=== PATIENT | female | born 1960 | race Caucasian/White ===

== ENCOUNTER 2022-11-05 13:45 | Outpatient (REF) | payer OTHER, SELFPAY ==
[2022-11-05 15:36] LABS: Hematocrit 46.1 % (37.0-47.0); Hemoglobin 15.3 g/dl (12.0-16.0); Mean Corpuscular HGB Conc 33.2 g/dl (31.0-35.0); Mean Corpuscular Hemoglobin 31.3 pg (27.0-33.0); Mean Corpuscular Volume 94.3 fL (80.0-98.0); Mean Platelet Volume 9.3 fL (9.4-12.3); Platelet Count 340 X10*3/uL (160-400); Red Blood Count 4.89 X10*6/uL (4.20-5.50); Red Cell Distribution Width 13.3 % (11.0-16.0); White Blood Count 9.4 X10*3/uL (4.8-10.8)
[2022-11-05 16:42] LABS: Iron 51 mcg/dL (30-160); Percent Iron Saturation 15 % (15-50); Total Iron Binding Capacity 344 mcg/dL (228-428); Unsaturated Iron Binding 293 ug/dL
[2022-11-05 16:43] LABS: Ferritin 185 ng/mL (10-250)
[2022-11-07 13:38] LABS: Immunoglobulin A 165 mg/dL (70-320)
[2022-11-07 13:54] LABS: Transglutaminase IgA <1.0 U/mL
== END 2022-11-05 13:46 | disposition home or self-care (01) ==
LOC: HO.LAB 13:45
PROVIDERS: PCP Internal Medicine; Visit Provider Internal Medicine
DX: R19.4 Change in bowel habit (principal); K92.1 Melena; Z86.010 Personal history of colon polyps
CPT/HCPCS: 36415; 82728; 82784; 83540; 84443; 85027; 86364

== ENCOUNTER 2022-11-05 13:45 | Outpatient (AMB) | payer OTHER, SELFPAY ==
--- NOTE | 2022-11-05 13:47 | MHC.OFFVIS ---
Intake Vital Signs 11/05/22 13:50 Height 5 ft 9 in Weight 163 lb 2.273 oz BMI 24.1 Blood Pressure Location Lt brachial Position Sitting Intake Visit Reasons: STAT bowel change, bloating , tarry , red blood Intake Note: María presents in the office as a new patient for bowel changes, bloating, red and tarry stools. CC: She is having bleeding sometimes, bloating in her stomach. Mucus stools that she gets frequently. More constipation than diarrhea. She states that all her BMs are different - no two are the same. Steam Plant Operator Required: No Allergies No Known Allergies Allergy (Verified 11/05/22 13:49) HPI HPI Comments History of Present Illness Details 62 y.o F with PMH of who is here for changes in bowel habits. Pt reports abdominal pain and constipation x 2 months. Reports having hard and small stools which she sometimes has to disimpact manually. Has also been noticing small amount of bright red blood around the itself and the stool itself varies from brown to black. Abd pain is in lower abdomen assoc with bloating. Appetite has gone down with weight loss of 15 lbs. No fam hx of stomach or colon cancer. Last colo was in 2016 at [place]- reportedly had 5 polyps but could not go for recall as did not have insurance at that time. Smokes around 7-8 cigs a day. Rare etOH use. Lives at home. Works as a customer service leader. [facility] Surgical History (Updated 11/05/22 @ 13:52 by YANET Wolf) History of esophagogastroduodenoscopy (EGD) History of wisdom tooth extraction, class I edentulism Hx of cervical sympathectomy Hx of colonoscopy Social History (Updated 11/05/22 @ 13:53 by YANET Wolf) Household Members: None Alcohol intake: current Alcohol intake frequency: holidays/special occasions only Patient Tobacco Use Status: Current someday Tobacco user Substance Use Type: Marijuana Review of Systems Const All systems reviewed & are unremarkable except as noted in HPI and below Physical Exam Vital Signs: BMI result Body Mass Index 24.1 Gen appear: NAD HEENT: nonicteric, no cervical lymphadenopathy Chest: CTA CVS: Regular S1/S2 Abd: soft, nontender, nondistended, bowel sounds + Ext: no peripheral edema Neuro: A/Ox3, noted to move all extremities spontaneously Psych: interacting appropriately Assessment & Plan Assessment & Plan (1) Change in bowel habit: Code(s): R19.4 - Change in bowel habit (2) Melena: Code(s): K92.1 - Melena (3) Hematochezia: Code(s): K92.1 - Melena (4) Personal history of colonic polyps: Code(s): Z86.010 - Personal history of colonic polyps Plan Sudden change in bowel habits over last 2 months with weight loss certainly worrisome for malignant process. Other ddx includes IBD, malabsorption with unrelated bleeding from PUD or hemorrhoids. Work up ordered as below. Will also schedule her for EGD/colo urgently in the next few weeks. Split PEG prep Rxed and instructions reviewed. Follow up after colo. Orders: Orders Ferritin Today K92.1 - Melena IRON PROFILE Today K92.1 - Melena TSH reflex Free T4 Today K92.1 - Melena Complete Blood Count no Diff Today K92.1 - Melena Immunoglobulin A Today K92.1 - Melena Transglutaminase IgA Today K92.1 - Melena Calprotectin, Fecal Today R19.4 - Change in bowel habit Medications: New peg 3350-electrolytes 236-22.74-6.74 -5.86 gram (Golytely) as per split prep instructions, until fecal effluent is clear 240 mL PO Q10M 4,000 mL 0RF colonoscopy Coding Level of Care Code New Pt Level 4 (34955) Diagnoses Change in bowel habit R19.4 Melena K92.1 Hematochezia K92.1 Personal history of colonic polyps Z86.010
[2022-11-05 13:50] VITALS: BMI 24.1
== END 2022-11-05 14:47 | disposition home or self-care (01) ==
PROVIDERS: Visit Provider Internal Medicine
DX: R19.4 Change in bowel habit (principal); K92.1 Melena; Z86.010 Personal history of colon polyps
CPT/HCPCS: 99204

== ENCOUNTER 2022-11-22 11:46 | Day surgery (SDC) | payer OTHER, SELFPAY ==
[2022-11-19 15:19] VITALS: BMI 24.1
--- NOTE | 2022-11-21 13:15 | HO.ANESPROP2 ---
Documented by User: Ally Kulkrani NP 11/21/22 13:16 HPI - Anesthesia Eval Consult details Narrative: 62yo F for Upper Endoscopy and Colonoscopy PMFSH Active Problems Active Problems: All Active Problems (Updated 11/19/22 @ 15:11 by Leydi Mckeon RN) Personal history of colonic polyps (Acute) Hematochezia (Acute) Change in bowel habit (Acute) Melena (Acute) Past Medical History Medical History GERD (gastroesophageal reflux disease) Elevated cholesterol Personal history of colonic polyps Surgical History Surgical History Hx of tonsillectomy Hx of cervical sympathectomy History of wisdom tooth extraction, class I edentulism History of esophagogastroduodenoscopy (EGD) Hx of colonoscopy Social History Social History Household Members: None Are you a primary home health care case manager to a significant other at home: No Do you presently have visiting nurse or other home services: No Alcohol intake: current Alcohol intake frequency: holidays/special occasions only Patient Tobacco Use Status: Current someday Tobacco user Tobacco use type: Cigarette Use of substances other than those prescribed or required for medical reasons: Yes Substance Use Type: Marijuana Substance Use Type Other:: marijuana for sleep Substance Use Frequency: Daily Have you been hit, kicked, punched, or otherwise hurt by someone within the past year? If so, by whom?: No Are you DNR?: No Advance Directives: No Advance Directives Information Provided: Yes (brochure mailed) Advance Directives on File: No Recently lost weight without trying: No Eating poorly because of decreased appetite: No Nutrition Risks: No Nutritional Risk : No Poor oral hygiene: No (dentures) Meds Allergies Allergy/AdvReac Type Severity Reaction Status Date / Time No Known Allergies Allergy Verified 11/05/22 13:49 Home Medications Medication Instructions Recorded Confirmed Last Taken Type aspirin 81 mg tablet,delayed 81 mg PO DAILY 11/05/22 11/19/22 Unknown History release (Adult Aspirin Regimen) atorvastatin 10 mg tablet 10 mg PO DAILY 11/05/22 11/19/22 Unknown History multivitamin 1 tab PO DAILY 11/05/22 11/19/22 Unknown History omega-3 900 mg-dha 360 mg-epa 455 1 cap PO DAILY 11/05/22 11/19/22 Unknown History mg-fish oil 1,000 mg capsule (Fish Oil) omeprazole 10 mg capsule,delayed 10 mg PO DAILY 11/05/22 11/19/22 Unknown History release Exam Exam Date and Time: November 21, 2022 1315 Height,Weight and Vital Signs: Height 5 ft 9 in Weight 73.936 kg Pertinent Lab Results Pertinent Lab Results: Laboratory Tests 11/05/22 15:07 WBC 9.4 RBC 4.89 Hgb 15.3 Hct 46.1 Plt Count 340 Assessment and Plan Assessment Anesthesia Assessment: Chart Reviewed Documented by User: Cecily Bazan MD 11/22/22 13:44 PMFSH Active Problems Active Problems: All Active Problems (Updated 11/22/22 @ 13:42 by Cecily Bazan MD) Personal history of colonic polyps (Acute) Hematochezia (Acute) Change in bowel habit (Acute) Melena (Acute) Smoker. Last cigarette yesterday 11/21/22 Past Medical History Medical History GERD (gastroesophageal reflux disease) Elevated cholesterol Personal history of colonic polyps Family History Family history of problems with anesthesia: No Surgical History Surgical History Hx of tonsillectomy Hx of cervical sympathectomy History of wisdom tooth extraction, class I edentulism History of esophagogastroduodenoscopy (EGD) Hx of colonoscopy History of Problems with Anesthesia: No Social History Social History Household Members: None Are you a primary home health care case manager to a significant other at home: No Do you presently have visiting nurse or other home services: No Alcohol intake: current Alcohol intake frequency: holidays/special occasions only Patient Tobacco Use Status: Current someday Tobacco user Tobacco use type: Cigarette Use of substances other than those prescribed or required for medical reasons: Yes Substance Use Type: Marijuana Substance Use Type Other:: marijuana for sleep Substance Use Frequency: Daily Have you been hit, kicked, punched, or otherwise hurt by someone within the past year? If so, by whom?: No Are you DNR?: No Advance Directives: No Advance Directives Information Provided: Yes (brochure mailed) Advance Directives on File: No Recently lost weight without trying: No Eating poorly because of decreased appetite: No Nutrition Risks: No Nutritional Risk : No Poor oral hygiene: No (dentures) Meds Allergies Allergy/AdvReac Type Severity Reaction Status Date / Time No Known Allergies Allergy Verified 11/05/22 13:49 Home Medications Medication Instructions Recorded Confirmed Last Taken Type aspirin 81 mg tablet,delayed 81 mg PO DAILY 11/05/22 11/19/22 Unknown History release (Adult Aspirin Regimen) atorvastatin 10 mg tablet 10 mg PO DAILY 11/05/22 11/19/22 Unknown History multivitamin 1 tab PO DAILY 11/05/22 11/19/22 Unknown History omega-3 900 mg-dha 360 mg-epa 455 1 cap PO DAILY 11/05/22 11/19/22 Unknown History mg-fish oil 1,000 mg capsule (Fish Oil) omeprazole 10 mg capsule,delayed 10 mg PO DAILY 11/05/22 11/19/22 Unknown History release Exam Height,Weight and Vital Signs: Height 5 ft 9 in Weight 73.936 kg Vital Signs Temp Pulse Resp BP Pulse Ox O2 Del Method 11/22/22 13:09 97.9 F 55 16 137/72 94 Room Air Airway Mallampati Class: I TM Dist: >3cm Neck ROM: Full Denture: Upper and Lower Heart: RRR Lungs: CTAB Assessment and Plan Assessment Anesthesia Assessment: Anesthesia Plan Discussed Final Anesthetic Review Family History of Problems with Anesthesia: No History of Problems with Anesthesia: No NPO: Yes ASA Class: II Final Preanesthetic Review: No Changes in Pt Med Stat, Meds/Allgs Chart Reviewed, Consent Obtained/Reviewed and Anes Risks/Benef Reviewed Patient Risk: Low Procedure Risk: Low Assessment/Block/Sedation in SS: Assess/Block/Sedation- Anesthetic Plan Anesthetic Plan: MAC: Disposition: Standard PACU
[2022-11-22 13:09] VITALS: BP 137/72; PULSE 55; RESP 16; TEMP 36.6; O2SAT 94
[2022-11-22] MEDS: Lactated Ringers 1,000 ML 100 ML IVCONT (13:10)
--- NOTE | 2022-11-22 13:48 | MHC.SHP ---
Pre-Procedural Eval Section A Date of Service: 11/22/22 Section B Chief Complaint: Change in bowel habits, unintentional weight loss Details of Present Illness: Surgical History History of esophagogastroduodenoscopy (EGD) History of wisdom tooth extraction, class I edentulism Hx of cervical sympathectomy Hx of colonoscopy Present Medications: see Short Stay Collaborative assessment Medical History: No relevant PMH Allergies: Allergies Allergy/AdvReac Type Severity Reaction Status Date / Time No Known Allergies Allergy Verified 11/05/22 13:49 Review of Systems Review of Systems Comment: 10 point ROS negative Exam Exam Comment: Gen appear: No acute distress HEENT: no icterus Chest: No overt resp distress Abd: soft, nontender, nondistended Psych: Stable affect, answering questions appropriately Neuro: A/Ox3 noted to move all extremities spontaneously Ext: no peripheral edema Plan Diagnosis/Plan: Unchanged I have reviewed the history and physical and performed a pertinent physical examination on my patient. No changes have occurred unless specified. Time Spent With Patient Time: Total time managing care of this patient today ____ minutes.
--- NOTE | 2022-11-22 15:10 | P.OP_ITS ---
Operative Note Operative Note Date of Service: 11/22/22 Narrative: Procedure:?Esophagogastroduodenoscopy and colonoscopy Endoscopist:?Bita James MD Indication:?Change in bowel habits, unintentional weight loss Anesthesia Provider:?Amairani Barnes CRNA Anesthesia Type:?MAC Instrument:?Olympus PCF-H190L, [id number] Colonoscopy Procedure:? The procedure, indications, preparation and potential complications were reviewed with the patient, who indicated understanding and gave written informed consent to proceed. A physical exam was performed. A digital rectal exam was performed which was normal.? A distal attachment cap was affixed to the tip of the scope and the colonoscope was then inserted through the anus and advanced through the colon to the cecum at 80 cm and terminal ileum. Appendiceal orifice and ileocecal valve were identified. Mucosa was carefully examined under high definition white light as the instrument was slowly withdrawn in a retrograde panoramic fashion. Retroflexion was performed in rectum. The procedure was not difficult. There were no immediate obvious complications. The quality of the prep was BBPS: 3+3+2 = adequate Withdrawal time: 23 minutes Limitations: No limitation. Colonoscopy Findings: Mucosa: Normal mucosa to cecum and terminal ileum. Cold forceps biopsies were taken from the right and left side of the colon to rule out microscopic colitis. Protruding lesions: * 1 sessile polyp of size 4 mm in descending colon. Cold snare polypectomy was performed. Polyp was completely removed and retrieved. * 2 sessile polyps of size 2 mm-8 mm in transverse colon. Cold forceps polypectomy was done for the smaller polyp and cold snare polypectomy was performed for the larger one. Polyps were completely removed and retrieved. * 1 sessile polyp of size 12 mm in transverse colon. Hot snare polypectomy was performed. Polyp was completely removed and retrieved. * 1 semi-pedunculated polyp of size 8 mm in transverse colon. Hot snare polypectomy was performed. Polyp was completely removed and retrieved. * 2 sessile polyps of size 6-8 mm in sigmoid colon. Cold snare polypectomy was performed. Polyps were completely removed and retrieved. * 2 semi-pedunculated polyp of size 7-8 mm in sigmoid colon. Hot snare polypectomy was performed. Polyps were completely removed and retrieved. EGD Procedure:?? The patient was then turned for the upper endoscopy. The endoscope was introduced through the bite block, and advanced to the second part of duodenum. The mucosa was carefully examined on slow withdrawal of the endoscope. There were no immediate complications. Patient tolerated the procedure well. EGD Findings:? * Esophagus:? A localised patch of heterotopic gastric mucosa was noted in the proximal esophagus. Normal mucosa noted in the remaining esophagus. The Z- line is at 39 cm. A small hiatal hernia was noted with the diaphragmatic pinch at 42 cm. * Stomach:? Erosions and flecks of heme noted in the stomach. Retroflexion performed in the fundus shows Hill grade II hiatal hernia. Random cold forceps gastric biopsies were taken to rule out H pylori. * Duodenum:? Mild erythema and edema noted in the duodenal bulb. Cold forceps biopsies were taken from duodenal bulb and 2nd portion of duodenum to rule out celiac sprue. Impression: 1. Inlet patch 2. Hiatal hernia 3. Gastritis (biopsy) 4. Duodenitis (biopsy) 5. Normal colon and terminal ileum mucosa (biopsy) 6. Total of 9 polyps removed including a 12 mm polyp in transverse colon 7. Internal hemorrhoids Recommendations:?? * Await pathology results. * Repeat colonoscopy in 3 years if more than 3 polyps are adenoma * If has had >10 adenomas cumulatively, will need referral to get evaluated for polyposis syndrome * INCREASE omeprazole to 20mg PO once daily * Avoid NSAIDs and smoking
[2022-11-22 15:12] VITALS: BP 95/53; PULSE 66; RESP 16; TEMP 36.1; O2SAT 98
[2022-11-22 15:17] VITALS: BP 91/52; PULSE 60; RESP 16; O2SAT 98
[2022-11-22 15:22] VITALS: BP 97/65; PULSE 53; RESP 16; O2SAT 99
[2022-11-22 15:27] VITALS: BP 119/69; PULSE 62; RESP 16; TEMP 36.2; O2SAT 96
== END 2022-11-22 16:04 | disposition home or self-care (01) ==
PROVIDERS: PCP Family Medicine; Visit Provider Internal Medicine
PROC: (CPT 45385; principal; 2022-11-22 14:50)
DX: R19.4 Change in bowel habit (principal); Z86.010 Personal history of colon polyps; D12.3 Benign neoplasm of transverse colon; D12.5 Benign neoplasm of sigmoid colon; K63.5 Polyp of colon; K92.1 Melena; K59.00 Constipation, unspecified; R63.4 Abnormal weight loss; Z68.24 Body mass index [BMI] 24.0-24.9, adult; K44.9 Diaphragmatic hernia without obstruction or gangrene; K29.70 Gastritis, unspecified, without bleeding; K29.80 Duodenitis without bleeding; Q39.8 Other congenital malformations of esophagus; F17.210 Nicotine dependence, cigarettes, uncomplicated; F12.90 Cannabis use, unspecified, uncomplicated; Z79.899 Other long term (current) drug therapy
CPT/HCPCS: 45385; 45380; 43239; 88305; 88342

== ENCOUNTER → 2022-11-22 11:46 | Outpatient (BNV) | payer OTHER, SELFPAY | PROVIDERS: PCP Family Medicine; Visit Provider Internal Medicine | DX: R19.4 Change in bowel habit (principal); K44.9 Diaphragmatic hernia without obstruction or gangrene; K29.70 Gastritis, unspecified, without bleeding; D12.4 Benign neoplasm of descending colon; D12.3 Benign neoplasm of transverse colon; D12.5 Benign neoplasm of sigmoid colon; K64.9 Unspecified hemorrhoids | CPT/HCPCS: 43239; 45380; 45385 ==

== ENCOUNTER 2022-12-04 14:33 | Outpatient (AMB) | payer OTHER, SELFPAY ==
--- NOTE | 2022-12-04 14:41 | MHC.OFFVIS ---
Intake Vital Signs 12/04/22 14:43 Height 5 ft 9 in Weight 165 lb 5.547 oz BMI 24.4 BP 151/90 H Blood Pressure Location Lt brachial Position Sitting Pulse 71 Intake Visit Reasons: s/p DBL Intake Note: María presents in the office as a follow up for her egg/colo. CC: She states that she is just here for the results - she is concerned with doubling Omeprazole. She started too but she does not feel comfortable taking to begin with. Senior Training And Development Rep Required: No Allergies No Known Allergies Allergy (Verified 12/04/22 14:43) HPI HPI Comments History of Present Illness Details 62 y.o F with PMH of who is here for changes in bowel habits. 11/05/22: Pt reports abdominal pain and constipation x 2 months. Reports having hard and small stools which she sometimes has to disimpact manually. Has also been noticing small amount of bright red blood around the itself and the stool itself varies from brown to black. Abd pain is in lower abdomen assoc with bloating. Appetite has gone down with weight loss of 15 lbs. No fam hx of stomach or colon cancer. Last colo was in 2015 at [place]- had 5 polyps but could not go for recall as did not have insurance at that time. Path not available. Smokes around 7-8 cigs a day. Rare etOH use. Lives at home. Works as a customer orders clerk. 11/22/22: EGD/colo 1. Inlet patch 2. Hiatal hernia 3. Gastritis (biopsy) 4. Duodenitis (biopsy) 5. Normal colon and terminal ileum mucosa (biopsy) 6. Total of 9 polyps removed including a 12 mm polyp in transverse colon 7. Internal hemorrhoids Path: A. Colon, descending, polypectomy: Hyperplastic mucosal polyp. B. Colon, right, biopsy: Colonic mucosa within normal limits. C. Colon, transverse 2-8 mm, polypectomies (2): Tubular adenomata; negative for high-grade dysplasia or carcinoma. D. Colon, transverse 12 mm, polypectomy: Sessile serrated lesion/polyp with low grade cytologic dysplasia; negative for high grade dysplasia or carcinoma. E. Colon, transverse, polypectomy: Tubular adenoma; negative for high-grade dysplasia or carcinoma. F. Colon, left polyp, biopsy: Colonic mucosa with mild surface hyperplastic changes. G. Colon, sigmoid, polypectomies (4): - Tubular adenoma; negative for high-grade dysplasia or carcinoma. - Hyperplastic mucosal polyps. H. Duodenum, biopsy: Duodenal mucosa within normal limits. I. Stomach, random, biopsy: Antral-type and oxyntic mucosa within normal limits; no Helicobacter organisms seen 12/04/22: Reviewed colo results. Made correction to msg sent on portal that she had 5/9 precancerous polyps (not 8/9). In any case will be for repeat colo in 3 years due to 12 mm SSL and >3 adenomas in total. Otherwise, weight seems to have stabilised. Constipation manageable. Worried about her high BP today. [facility] Medical History GERD (gastroesophageal reflux disease) Elevated cholesterol Personal history of colonic polyps Surgical History Hx of tonsillectomy Hx of cervical sympathectomy History of wisdom tooth extraction, class I edentulism History of esophagogastroduodenoscopy (EGD) Hx of colonoscopy Social History Household Members: None Are you a primary before and after school daycare worker to a significant other at home: No Do you presently have visiting nurse or other home services: No Alcohol intake: current Alcohol intake frequency: holidays/special occasions only Patient Tobacco Use Status: Current someday Tobacco user Tobacco use type: Cigarette Substance Use Type: Marijuana Review of Systems Const All systems reviewed & are unremarkable except as noted in HPI and below Physical Exam Vital Signs: Last Vital Signs Pulse 71 12/04/22 14:43 BP 151/90 H 12/04/22 14:43 BMI result Body Mass Index 24.4 Gen appear: NAD HEENT: nonicteric, no cervical lymphadenopathy Chest: CTA CVS: Regular S1/S2 Abd: soft, nontender, nondistended, bowel sounds + Ext: no peripheral edema Neuro: A/Ox3, noted to move all extremities spontaneously Psych: interacting appropriately Assessment & Plan Assessment & Plan (1) Personal history of colonic polyps: Code(s): Z86.010 - Personal history of colonic polyps (2) Hypertension: Code(s): I10 - Essential (primary) hypertension Plan Repeat colo recommended in 3 years. We will also get path on polyps removed at [facility] to calculate lifetime adenoma burden and if 10 or more, may benefit from referral to genetics for polyposis syndrome. Pt was advised to call her PCP if SBP consistently >130 this week for discussion on antihypertensives. Follow up with GI prn in the interim. Coding Level of Care Code Est Pt Level 4 (03837) Diagnoses Personal history of colonic polyps Z86.010 Hypertension I10
[2022-12-04 14:43] VITALS: BP 151/90; PULSE 71; BMI 24.4
== END 2022-12-04 16:05 | disposition home or self-care (01) ==
PROVIDERS: Visit Provider Internal Medicine
DX: Z86.010 Personal history of colon polyps (principal); I10 Essential (primary) hypertension
CPT/HCPCS: 99214

== ENCOUNTER → 2022-12-04 14:33 | Outpatient (BNVA) | payer OTHER, SELFPAY | PROVIDERS: Visit Provider Internal Medicine ==